=== PATIENT | female | born 1985 ===

== ENCOUNTER 2017-12-28 08:14 | Outpatient (CLI) | payer OTHER ==
[~2017-12-28] VITALS: Ht 157.5 cm; Wt 115.7 kg
[2017-12-28] MEDS ORDERED: FLONASE16 GM NASAL (10:46)
[2017-12-28] MEDS ORDERED: LIPO-FLAVONOID1 EACH PO (10:51)
== END 2017-12-28 08:30 | disposition home or self-care (01) ==
LOC: OFIC 805 08:14
DX: J31.0 Chronic rhinitis (principal); R42 Dizziness and giddiness; H55.89 Other irregular eye movements